=== PATIENT | male | born 1950 | race Caucasian/White ===

== ENCOUNTER 2017-04-25 19:46 | Inpatient (IN) | payer MEDICARE ==
[2017-04-25] MEDS ORDERED: ALBUTEROL NEBULIZED 2.5 MG/3 ML INHALATION STA (20:33)
[2017-04-25] MEDS ORDERED: SODIUM CHLORIDE 0.9% 1,000 ML IV STA ×2 (20:33)
[2017-04-25] MEDS ORDERED: methylPREDNISolone SOD SUCCI 125 MG/2 ML VIAL IV STA (20:33)
[2017-04-25] MEDS ORDERED: IPRATROPIUM 0.5 MG/2.5 ML NEBU INHALATION STA (20:33)
[2017-04-25] MEDS ORDERED: AZITHROMYCIN 500 MG in SODIUM CHLORIDE 0.9% 250 ML IVPB STA (20:35)
--- NOTE | 2017-04-25 20:35 | ED ---
General Adult HPI - General Chief complaint: Shortness of Breath Stated complaint: SOB Source: patient, family, RN notes reviewed, old records reviewed Mode of arrival: wheelchair Limitations: no limitations - History of Present Illness Initial comments: This is a 66-year-old year for evaluation shortness of breath. Patient has severe history of difficulty breathing. Severe COPD on 3 L of oxygen at all times. Increasing shortness of breath for the last 3 days progressively worsening, increased cough congestion, significant worsening of shortness of breath, no recent travel history, no sick contacts, no known fevers - Related Data Home Medications Medication Instructions Recorded Confirmed Budesonide-Formot 160-4.5 Mcg 2 puff INHALATION RT-BID 06/07/16 04/25/17 [Symbicort 160-4.5 Mcg Inhaler] Dexamethasone 4 mg PO DAILY 04/25/17 04/25/17 Haloperidol [Haldol] 0.5 - 2 mg PO Q4H 04/25/17 04/25/17 Hyoscyamine Sulfate [Levsin] 0.125 - 0.25 mg PO Q4H 04/25/17 04/25/17 Ipratropium/Albuterol Sulfate 1 puff INHALATION RT-QID PRN 04/25/17 04/25/17 [Combivent Respimat Inhaler] LORazepam [Ativan] 0.5 - 1 mg PO Q4H 04/25/17 04/25/17 Morphine Sulfate [Morphine Sulfate 5 mg PO Q1H 04/25/17 04/25/17 Oral Solution] Previous Rx's Medication Instructions Recorded Albuterol Nebulized [Ventolin 2.5 mg INHALATION RT-QID #120 nebu 09/27/15 Nebulized] Allergies Allergy/AdvReac Type Severity Reaction Status Date / Time No Known Allergies Allergy Verified 04/25/17 20:22 Review of Systems ROS Statement: Those systems with pertinent positive or pertinent negative responses have been documented in the HPI. ROS Other: All systems not noted in ROS Statement are negative. Past Medical History Past Medical History: COPD Additional Past Medical History / Comment(s): emphysema History of Any Multi-Drug Resistant Organisms: None Reported Past Surgical History: Unable to Obtain Additional Past Surgical History / Comment(s): Cartlidge removal in R knee Past Anesthesia/Blood Transfusion Reactions: No Reported Reaction Past Psychological History: Anxiety Smoking Status: Former smoker Past Alcohol Use History: None Reported Past Drug Use History: Marijuana - Past Family History Father Family Medical History: Cancer Additional Family Medical History / Comment(s): total body cancer Mother Family Medical History: Cancer Additional Family Medical History / Comment(s): breast General Exam Limitations: no limitations General appearance: alert, in no apparent distress, anxious Head exam: Present: atraumatic, normocephalic, normal inspection Eye exam: Present: normal appearance, PERRL, EOMI. Absent: scleral icterus, conjunctival injection, periorbital swelling ENT exam: Present: normal exam, mucous membranes moist Neck exam: Present: normal inspection. Absent: tenderness, meningismus, lymphadenopathy Respiratory exam: Present: normal lung sounds bilaterally, wheezes, accessory muscle use, decreased breath sounds, prolonged expiratory. Absent: respiratory distress, rales, rhonchi, stridor Cardiovascular Exam: Present: regular rate, normal rhythm, normal heart sounds. Absent: systolic murmur, diastolic murmur, rubs, gallop, clicks GI/Abdominal exam: Present: soft, normal bowel sounds. Absent: distended, tenderness, guarding, rebound, rigid Extremities exam: Present: normal inspection, full ROM, normal capillary refill. Absent: tenderness, pedal edema, joint swelling, calf tenderness Back exam: Present: normal inspection Neurological exam: Present: alert, oriented X3, CN II-XII intact Psychiatric exam: Present: normal affect, normal mood Skin exam: Present: warm, dry, intact, normal color. Absent: rash Course Vital Signs 04/25/17 04/25/17 04/25/17 19:49 20:06 20:11 Temperature 98 F Pulse Rate 100 77 Respiratory 24 22 22 Rate Blood Pressure 127/87 108/74 O2 Sat by Pulse 93 L 98 Oximetry EKG Findings - EKG Comments: EKG Findings:: EKG shows sinus at a rate of 64, DC 160, QRS 70, QTc 427 Disposition Clinical Impression: Acute exacerbation of chronic obstructive airways disease, High risk for readmission, Asthma with exacerbation Referrals: Edmond Gonsales MD [Primary Care Provider] - 1-2 days
[2017-04-25 21:04] LABS: Basophils % (A) 0 %; CHCM 34.2; Eosinophils % (A) 0 %; HCT 42.7 % (39.0-53.0); HGB 14.4 gm/dL (13.0-17.5); Luc # (Auto) 0.03; Luc % (Auto) 0; Lymphocytes # (A) 0.3 k/uL (1.0-4.8); Lymphocytes % (A) 2 %; MCH 30.7 pg (25.0-35.0); MCHC 33.8 g/dL (31.0-37.0); MCV 91.1 fL (80.0-100.0); Mean Platelet Volume 7.1; Monocytes # (A) 0.3 k/uL (0-1.0); Monocytes % (A) 2 %; Neutrophils # (A) 14.8 k/uL (1.3-7.7); Neutrophils % (A) 96 %; RBC 4.69 m/uL (4.30-5.90); RDW 13.1 % (11.5-15.5); WBC 15.5 k/uL (3.8-10.6)
[2017-04-25 21:18] LABS: Partial Thromboplastin Time 21.7 sec (22.0-30.0)
[2017-04-25 21:25] LABS: ALT 31 U/L (21-72); AST 19 U/L (17-59); Alkaline Phosphatase 83 U/L (38-126); Anion Gap 9 mmol/L; Blood Urea Nitrogen 16 mg/dL (9-20); Calcium 9.3 mg/dL (8.4-10.2); Carbon Dioxide 27 mmol/L (22-30); Chloride 102 mmol/L (98-107); Creatine Kinase 25 U/L (55-170); Glucose 127 mg/dL (74-99); Non-African American GFR(MDRD) >60 (>60 ml/min/1.73 sqM); Potassium 4.7 mmol/L (3.5-5.1); Sodium 138 mmol/L (137-145); Total Bilirubin 0.4 mg/dL (0.2-1.3)
[2017-04-25 21:37] LABS: Creatine Kinase MB 1.7 ng/mL (0.0-2.4); Troponin I <0.012 ng/mL (0.000-0.034)
--- NOTE | 2017-04-25 21:38 | XR ---
EXAMINATION TYPE: XR chest 2V DATE OF EXAM: 04/25/2017 COMPARISON: 06/08/2016 HISTORY: COPD and shortness of breath. TECHNIQUE: Frontal and lateral views of the chest are obtained. FINDINGS: Similar to the prior exam there is pulmonary hyperinflation, bullous emphysematous changes that are greater on the right, and enlargement of the lin. Flattening of the diaphragms, apical noé encies, elongation of the cardiac mediastinal silhouette, and tapering of the pulmonary vasculature a re seen in combination with increased anterior posterior diameter of the chest. Chronic right middle lobe atelectasis versus scarring is appreciated on the lateral image. Minimal degenerative changes ar e seen of the thoracic spine. IMPRESSION: No new focal consolidation. Extensive bullous emphysematous changes and hilar enlargemen t, likely on the basis of pulmonary arterial hypertension.
[2017-04-25 23:19] VITALS: BMI 16.5
[2017-04-25] MEDS ORDERED: HALOPERIDOL 0.5 MG TAB PO PRN (23:53)
[2017-04-25] MEDS ORDERED: LORazepam 1 MG TAB PO PRN (23:53)
[2017-04-25] MEDS ORDERED: IPRATROPIUM-ALBUTEROL 3 ML NEB INHALATION PRN (23:53)
[2017-04-25] MEDS ORDERED: HYOSCYAMINE SULFATE 0.125 MG TAB PO PRN (23:53)
[2017-04-26] MEDS ORDERED: HYOSCYAMINE SULFATE 0.125 MG TAB PO PRN (00:29)
[2017-04-26] MEDS ORDERED: HALOPERIDOL 0.5 MG TAB PO PRN (00:29)
[2017-04-26] MEDS: SODIUM CHLORIDE 0.9% 1,000 ML IV SCH ×3 (00:52→17:29)
[2017-04-26] MEDS: LORazepam 1 MG TAB PO PRN ×5 (00:52→18:54)
[2017-04-26] MEDS: methylPREDNISolone SOD SUCCI 125 MG/2 ML VIAL IV SCH ×4 (00:52→17:28)
[2017-04-26] MEDS ORDERED: SYMBICORT 160-4.5 MCG INHALER INHALATION SCH (08:00)
[2017-04-26] MEDS: ENOXAPARIN 40 MG/0.4 ML SYRINGE SQ SCH (08:10)
[2017-04-26] MEDS: MORPHINE ORAL SOLN 20 MG/1 ML ORAL SYRINGE PO PRN ×4 (08:38→18:54)
[2017-04-26] MEDS: IPRATROPIUM-ALBUTEROL 3 ML NEB INHALATION SCH ×4 (08:53→20:10)
[2017-04-26] MEDS: HALOPERIDOL 2 MG TAB PO PRN (17:57)
[2017-04-26] MEDS: BUDESONIDE 1 MG/2 ML NEBU INHALATION SCH (20:10)
--- NOTE | 2017-04-26 20:35 | HP ---
DATE OF ADMISSION: 04/25/2017 PRESENTING COMPLAINT: Short of breath. HISTORY OF PRESENTING COMPLAINT: This is a pleasant 66-year-old patient who follows with visiting physicians, Dr. Gonsales. The patient has advanced COPD from smoking, on home oxygen 4 liters, anxiety. The patient has not been eating well, gradually losing weight. Gets easily short winded. Patient actually has been under hospice care. Finds it more difficult to breathe. Slight cough. No fever. Minimal sputum. Decided to come in and get admitted. Tired and rundown. REVIEW OF SYSTEMS: CONSTITUTIONAL: Weak, tired, loss of weight, loss of appetite. HEENT: None. RESPIRATORY: As above. CARDIOVASCULAR: None. GASTROINTESTINAL: None. GENITOURINARY: None. MUSCULOSKELETAL: Diffuse weakness in the muscles. DERMATOLOGIC: None. HEMATOLOGIC: None. LYMPHATIC: None PSYCHIATRIC: Some anxiety. NEUROLOGIC: None. PAST MEDICAL HISTORY: Chronic hypoxic respiratory failure, COPD, anxiety. PAST SURGICAL HISTORY: Cartilage removed, right knee. SOCIAL HISTORY: Patient smoked heavily for about 45 years, did marijuana sometimes. Lives by himself. FAMILY HISTORY: Total body cancer. HOME MEDICATIONS: 1. Morphine 5 mg p.r.n. 2. Roxanol 20 mg q2 p.r.n. 3. Ativan 0.5-1 mg q4 p.r.n. 4. Combivent one puff q.i.d. p.r.n. 5. Levsin 0.125 mg q4 p.rn. 6. Haldol 0.5-2 mg q4. 7. Dexamethasone 4 mg q. daily. 8. Symbicort 160/4.5 two puffs b.i.d. 9. Ventolin 2.5 q.i.d. ALLERGIES: None. On examination, temperature is 98, pulse 100, respirations 24, blood pressure 127/87, pulse ox 93% on 3 liters. GENERAL APPEARANCE: Thin build, sitting up, tired appearing, short of breath. EYES: Pupils equal. Conjunctivae normal. HEENT: Oral cavity - decreased dentition. NECK: JVD not raised. Mass not palpable. RESPIRATORY EFFORT: Increased. LUNGS: Diminished breath sounds. Prolonged expiration, wheezing. CARDIOVASCULAR: First and second normal. No edema. ABDOMEN: Soft, nontender. Liver and spleen not palpable. LYMPHATICS: No lymph node in neck or axilla. PSYCHIATRY: Alert and oriented x3. Mood and affect anxious appearing. MUSCULOSKELETAL: Evidence of osteoarthritis in multiple joints and diffuse wasting of the muscles, loss of skin tone from muscle fat. INVESTIGATIONS: White count 15.5, hemoglobin 14.4, potassium 4.7. Chest x-ray reviewed by me shows hyperinflated lungs and very prominent pulmonary arteries. EKG shows sinus rhythm. ASSESSMENT: 1. Acute advanced end-stage chronic obstructive pulmonary disease exacerbation with possibly acute hypoxic respiratory failure. 2. Chronic hypoxic respiratory failure, chronic obstructive pulmonary disease. 3. Pulmonary hypertension secondary to underlying chronic obstructive pulmonary disease. 4. Anxiety disorder, not otherwise specified. 5. Protein-calorie malnutrition with a body mass index of 16.6, loss of muscle mass severe. 6. Primary osteoarthritis of multiple joints bilateral. PLAN: The patient was put on nebulized bronchodilator, IV steroids. Care was discussed with the patient. Will start the patient on food supplements. Will talk to patient's family doctor. After talking to the family doctor we will decide further course. SABRINAD
[2017-04-26] MEDS: ACETAMINOPHEN TAB 325 MG TAB PO PRN (20:47)
[2017-04-26] MEDS: methylPREDNISolone SOD SUCCI 40 MG/ML 1 ML VIAL IV SCH (23:12)
[2017-04-27] MEDS: MORPHINE ORAL SOLN 20 MG/1 ML ORAL SYRINGE PO PRN ×6 (00:04→21:17)
[2017-04-27] MEDS: LORazepam 1 MG TAB PO PRN ×6 (00:04→21:17)
[2017-04-27] MEDS: SODIUM CHLORIDE 0.9% 1,000 ML IV SCH ×3 (04:15→23:05)
[2017-04-27] MEDS: IPRATROPIUM-ALBUTEROL 3 ML NEB INHALATION SCH ×5 (04:52→20:48)
[2017-04-27] MEDS: ENOXAPARIN 40 MG/0.4 ML SYRINGE SQ SCH (08:01)
[2017-04-27] MEDS: methylPREDNISolone SOD SUCCI 40 MG/ML 1 ML VIAL IV SCH ×2 (08:01→16:51)
[2017-04-27] MEDS: BUDESONIDE 1 MG/2 ML NEBU INHALATION SCH ×2 (08:11→20:48)
[2017-04-27 08:50] LABS: Anion Gap 6 mmol/L; Blood Urea Nitrogen 12 mg/dL (9-20); Calcium 8.8 mg/dL (8.4-10.2); Carbon Dioxide 31 mmol/L (22-30); Chloride 103 mmol/L (98-107); Glucose 99 mg/dL (74-99); Non-African American GFR(MDRD) >60 (>60 ml/min/1.73 sqM); Potassium 4.1 mmol/L (3.5-5.1); Sodium 140 mmol/L (137-145)
[2017-04-27 09:52] LABS: Basophils % (A) 0 %; CH 30.4; CHCM 32.6; Eosinophils % (A) 0 %; HCT 40.4 % (39.0-53.0); HDW 2.31; HGB 13.2 gm/dL (13.0-17.5); Luc # (Auto) 0.18; Luc % (Auto) 1; Lymphocytes # (A) 1.5 k/uL (1.0-4.8); Lymphocytes % (A) 7 %; MCH 30.7 pg (25.0-35.0); MCHC 32.8 g/dL (31.0-37.0); MCV 93.8 fL (80.0-100.0); Mean Platelet Volume 7.5; Monocytes # (A) 0.8 k/uL (0-1.0); Monocytes % (A) 4 %; Neutrophils # (A) 18.7 k/uL (1.3-7.7); Neutrophils % (A) 88 %; RBC 4.31 m/uL (4.30-5.90); RDW 13.3 % (11.5-15.5); WBC 21.2 k/uL (3.8-10.6); WBC (Perox) 22.04
[2017-04-27] MEDS: ACETAMINOPHEN TAB 325 MG TAB PO PRN ×2 (13:35→19:55)
--- NOTE | 2017-04-27 17:55 | P.PN ---
<Columba Guzman - Last Filed: 04/27/17 17:44> Progress Note - Text DATE OF SERVICE: 04/27/2017 PRESENTING COMPLAINT: Short of breath HISTORY OF PRESENT ILLNESS: 66-year-old male who has advanced COPD on home oxygen of 4 L on hospice care has found it more difficult to breathe and was found to have an exacerbation of his COPD, with acute hypoxic respiratory failure. INTERVAL HISTORY: 04/27/2017: Patient seen in follow-up today, sitting up in bed appears somewhat anxious. Breathing improved, oxygen remains in place, finds it difficult to eat has a low appetite eating about 20% of his meal. Supplement provided. REVIEW OF SYSTEMS: Done for constitutional ,cardiovascular, GI, pulmonary with relevant findings as above. CURRENT MEDICATIONS DuoNeb, Pulmicort, Lovenox, Haldol, Levsin, Ativan, Roxanol. PHYSICAL EXAM VITAL SIGNS: Temperature 97.0, pulse 53, respiratory rate 16, blood pressure 110/64, oxygen saturation 100% on 5 L nasal cannula GENERAL APPEARANCE: Lying in bed, tired appearing. EYES: Pupils equal. Conjunctiva normal. NECK: JVD not raised. Mass not palpable. RESPIRATORY: Respiratory effort moderately labored. Lungs diminished with prolonged expiration and wheezing. CARDIOVASCULAR: First and second sounds normal. No edema. ABDOMEN: Soft. Liver and spleen not palpable. No tenderness. No mass palpable. PSYCHIATRY: Alert and oriented x3. Mood and affect anxious appearing. MUSCULOSKELETAL: Evidence of osteoporosis multiple joints, diffuse wasting of muscle mass, loss of skin tone from loss of muscle fat. INVESTIGATIONS: White blood cell count 21.2, carbon dioxide 31, BUN 12, creatinine 0.55 ASSESSMENT: -Acute advanced end-stage chronic obstructive pulmonary disease exacerbation with possibly acute hypoxic respiratory failure. -Chronic hypoxic respiratory failure, chronic obstructive pulmonary disease. -Pulmonary hypertension secondary to underlying chronic obstructive pulmonary disease. -Anxiety disorder not otherwise specified. -Protein calorie malnutrition a body mass index of 16.6, possible muscle mass, severe -Primary osteoarthritis of multiple joints bilateral. PLAN: Continue patient on nebulized bronchodilators, IV steroids. Protein supplements added. Discharge planning for return to home in the next 24-48 hours. We'll continue to monitor closely [employer] statement: Patient was seen and examined by nurse practitioner Columba Guzman and all elements of the case discussed with attending Dr. Forbes <John Forbes Last Filed: 04/27/17 21:16> Progress Note - Text Attending note. Date of service-04/27/2017 This patient was seen and examined by me . Discussed the patient with my nurse practitioner Ms. Guzman. Tired, short of breath, eating some food. On examination: Lungs-decreased breath sounds, prolonged expiration,. tired appearing Investigations: White count 21.2 Assessment and plan: Advanced end-stage COPD with respiratory failure, slow to respond Severe protein calorie malnutrition.
[2017-04-28] MEDS: methylPREDNISolone SOD SUCCI 40 MG/ML 1 ML VIAL IV SCH ×2 (00:15→08:38)
[2017-04-28] MEDS: MORPHINE ORAL SOLN 20 MG/1 ML ORAL SYRINGE PO PRN ×3 (04:09→12:54)
[2017-04-28] MEDS: LORazepam 1 MG TAB PO PRN ×3 (04:09→12:54)
[2017-04-28] MEDS: IPRATROPIUM-ALBUTEROL 3 ML NEB INHALATION SCH ×2 (07:54→12:14)
[2017-04-28] MEDS: BUDESONIDE 1 MG/2 ML NEBU INHALATION SCH (07:54)
[2017-04-28 08:25] LABS: CH 31.5; HCT 38.5 % (39.0-53.0); HDW 2.33; HGB 12.3 gm/dL (13.0-17.5); MCH 30.7 pg (25.0-35.0); MCV 96.1 fL (80.0-100.0); Mean Platelet Volume 7.3; RBC 4.01 m/uL (4.30-5.90); RDW 13.9 % (11.5-15.5); WBC 15.5 k/uL (3.8-10.6); WBC (Perox) 16.39
[2017-04-28] MEDS: ENOXAPARIN 40 MG/0.4 ML SYRINGE SQ SCH (08:39)
[2017-04-28 08:42] LABS: Anion Gap 6 mmol/L; Blood Urea Nitrogen 12 mg/dL (9-20); Calcium 8.4 mg/dL (8.4-10.2); Carbon Dioxide 30 mmol/L (22-30); Chloride 103 mmol/L (98-107); Glucose 95 mg/dL (74-99); Non-African American GFR(MDRD) >60 (>60 ml/min/1.73 sqM); Potassium 4.3 mmol/L (3.5-5.1); Sodium 139 mmol/L (137-145)
[2017-04-28 08:47] VITALS: BP 124/76; TEMP 96.8
[2017-04-28 08:52] VITALS: RESP 16
[2017-04-28 10:04] LABS: Add Differential Manual Differential
[2017-04-28 10:06] LABS: Manual Review Performed; Nucleated Red Blood Cells 0 /100 WBC (0-0); Total Cells Counted 100
[2017-04-28 10:07] LABS: Stomatocytes Present
[2017-04-28] MEDS: HALOPERIDOL 2 MG TAB PO PRN (11:22)
[2017-04-28] MEDS: SODIUM CHLORIDE 0.9% 1,000 ML IV SCH (11:27)
[2017-04-28 12:15] VITALS: PULSE 66
--- NOTE | 2017-04-29 22:45 | DS ---
DISCHARGE SUMMARY FINAL DIAGNOSIS: 1. Acute exacerbation of end-stage chronic obstructive pulmonary disease in an ex- smoker causing acute hypoxic respiratory failure present on admission. 2. Chronic hypoxic respiratory failure from underlying chronic obstructive pulmonary disease on home oxygen. 3. Secondary pulmonary hypertension from secondary to chronic obstructive pulmonary disease. 4. Anxiety disorder otherwise specified. 5. Severe protein calorie malnutrition with a BMI of 16.6. 6. Primary osteoarthritis of multiple joints, bilateral. 7. Medical debility patient limited ambulation. HOSPITAL COURSE: This is a patient who is actually under home hospice for COPD. Has had at least 2 admissions for COPD exacerbation. He takes his own decision and decided to come in because he was unable to breathe even though he was under hospice. Patient has been given a burst of steroids to which he felt better. I did explain to the patient that hospice is for this purpose as the lung stage is inpatient but he wanted to state that he was in hospice and keep coming back to the hospital for COPD exacerbation and getting steroids. I did speak to his family doctor Dr. Gonsales and did suggest that maybe at this point, the patient may be kept in the hospital depending how he feels. Patient has baseline short of breath. On exam, lungs decreased breath sounds, prolonged expiration. Awake. The patient given Ensure for additional support. DISCHARGE MEDICATIONS: 1. Haldol 0.5 mg po q4. 2. Levsin p.r.n. 3. Ativan 0.5 1 mg q4 p.r.n. 4. Roxanol 20 mg/mL q.2h p.r.n. 5. Brovana 15 mcg nebulizer b.i.d. 6. Pulmicort 1 mg nebulizer b.i.d. 7. DuoNeb nebulizer q.i.d. 8. Prednisone taper. Patient Combivent, Symbicort and Ventolin inhaler have all been discontinued because I do not think the patient's x-ray revealed have to use the inhaler. DISPOSITION: Home with family. Follow with Dr. Gonsales in 2 days. Home oxygen to continue. Patient has [facility] on board. I will let Dr. Gonsalse and family decide to make a clinical decision that if hospice is to continue, this was discussed with the patient. Discharge planning: More than 35 minutes. MMODL / IJN: [id number] /
== END 2017-04-28 15:37 | disposition hospice, home (50) | DRG 190 ==
LOC: EC 19:46 → 4MS4W 20:33 → OBSVTOIN 04-27 14:58
PROVIDERS: ADMIT Hospitalist; ATTEND Hospitalist
DX: J44.1 Chronic obstructive pulmonary disease with (acute) exacerbation (principal); J96.21 Acute and chronic respiratory failure with hypoxia; E43 Unspecified severe protein-calorie malnutrition; I27.2 Other secondary pulmonary hypertension; F41.9 Anxiety disorder, unspecified; M15.9 Polyosteoarthritis, unspecified; Z68.1 Body mass index [BMI] 19.9 or less, adult; Z99.81 Dependence on supplemental oxygen; Z87.891 Personal history of nicotine dependence; Z79.899 Other long term (current) drug therapy
CPT/HCPCS: 36415; 71020; 80048; 80053; 82550; 82553; 83880; 84484; 85025; 85610; 85730; 93005; 94640; 94760; 96365; 96366; 96375; 99285